=== PATIENT | male | born 1935 | race Caucasian/White ===

== ENCOUNTER 2016-03-22 08:16 | Emergency (ER) | payer OTHER, BC ==
[2016-03-22 08:39] VITALS: BP 160/94; PULSE 77; RESP 18; TEMP 99.1; O2SAT 89
[2016-03-22] MEDS ORDERED: IPRATROPIUM/ALBUTEROL 3 ML DEYVIAL IH ONE (08:47)
--- NOTE | 2016-03-22 09:10 | DX ---
PA and Lateral Chest March 22, 2016 0847 hours Clinical Indications: Cough with hypoxia and rhonchi. Comparison: March 17, 2010. Findings: The lungs are clear, and no masses are found. The heart and pulmonary vessels are normal. There are no pleural effusions and no pneumothorax. The bones are unremarkable for this age. Impression: No acute cardiopulmonary process.
--- NOTE | 2016-03-22 09:18 | UCPHY ---
H & P Patient Type: New Chief Complaint Nursing Narrative: 3 days of cough, congestion Time Seen by Provider: 03/22/16 08:40 HPI/ROS: This patient complains of cough over the past 5 days. The intensity from the see the cough is worsened for the past 3 days. He has been unable to use his BiPAP machine at night over the past 2 nights because of associated nasal congestion. Finally, his reports hearing rattles in his chest. She is concerned about potential pneumonia. This patient reports that he is susceptible pneumonia, citing previous pneumonias in his life.. ROS: No high fevers or chills. He reports no HEENT complaints other than coryza. He has no pleuritic pain. He has mild dyspnea. No chest pain. No lightheadedness or other cardio vascular symptoms. He reports no GI symptoms. Integumentary: No rash 10 point ROS is otherwise negative Source: Patient, Family (His also provides history) Exam Limitations: No limitations - Personal History Current Tetanus/Diphtheria Vaccine: Yes - Medical/Surgical History PMH: History is notable for type 2 diabetes and previous pneumonia Hx Diabetes: Yes Hx Cardiac Disease: Yes Other PMH: Sleep Apnea-BiPap. Arthritis. Gallbladder. Prostate - Family History Significant Family History: No pertinent family hx - Social History Smoking Status: Never smoked Alcohol Use: Rarely Drug Use: None - Physical Exam Exam: General Appearance: Pleasant 80-year-old male appears younger than his stated age Alert, no distress. Eyes: Pupils equal and round no pallor or injection. ENT, Mouth: Mucous membranes moist. Respiratory: Mild rhonchi. No rales. No respiratory distress Cardiovascular: Regular rate and rhythm. No JVD or peripheral edema Neurological: Alert with no focal deficits Skin: Warm and dry, no rashes. Musculoskeletal: Neck is supple nontender. Extremities are symmetrical, full range of motion. Psychiatric: Mood and affect normal DIFFERENTIAL DIAGNOSIS: After history and physical exam differential diagnosis was considered for bronchitis, pneumonia, influenza Constitutional: Initial Vital Signs Temperature (C) 37.3 C 03/22/16 08:36 Heart Rate 77 03/22/16 08:36 Respiratory Rate 18 03/22/16 08:36 Blood Pressure 160/94 H 03/22/16 08:36 O2 Sat (%) 89 L 03/22/16 08:36 O2 Delivery Mode Room Air Allergies/Adverse Reactions: No Known Allergies Allergy (Verified 03/22/16 08:35) Home Medications: Medication Instructions Recorded Albuterol Hfa Anes Only [Proair 2 puffs IH Q4 PRN #1 mdi 03/22/16 Hfa Icu (*)] Aspirin 03/22/16 Lisinopril 03/22/16 Metformin HCl 03/22/16 Omeprazole 03/22/16 Simvastatin 03/22/16 Medical Decision Making ED Course/Re-evaluation: DuoNeb with increased aeration decreased rhonchi and improved O2 sat from 89% to 92%. I counseled the patient regarding influenza-influenza a was positive Discussion: Patient here with viral bronchitis chewable to influenza with no evidence of significant toxicity. His exam improved after DuoNeb. I think that he is safe for discharge home - Data Points Laboratory Results: 03/22/16 08:50 Influenza Typ A,B (DFA) POSITIVE FOR FLU A H (NEGATIVE) Departure - Departure Disposition: Home, Routine, Self-Care Clinical Impression: Viral bronchitis, Influenza A Condition: Good Instructions: Influenza (ED), Acute Bronchitis (ED) Additional Instructions: Diagnosis: 1. Viral bronchitis 2. Influenza A Plan: Drink plenty fluids Albuterol inhaler with spacer for cough, wheeze or shortness of breath Return for any significant worsening despite the treatment plan Referrals: Hugo Lynch MD [Primary Care Provider] - As per Instructions Prescriptions: Albuterol Hfa Anes Only [Proair Hfa Icu (*)] 2 puffs IH Q4 PRN #1 mdi PRN Reason: Wheezing - PQRS PQRS Measurement: 134: Depression screening and followup, PRIME MD-PHQ2 (12 years and older) Over the last 2 weeks, how often have you been bothered by any of the following problems? 1. Feeling down, depressed, or hopeless? 2. Little interest or pleasure in doing things? Patient answered no to both 1 and 2 130: Documentation of medications. Reviewed all patient medications, doses, route and frequency. 226: Do you smoke? [No.] 47: 65 and older: Advanced care planning. Patient designates surrogate decision maker as spouse 51: 18 years old and older with diagnosis of COPD, spirometry performance. NA 52: 18 years old and older with COPD and symptoms of COPD or FEV1<60% predicted prescribed a B Agonist. NA
== END 2016-03-22 09:44 | disposition home or self-care (01) ==
LOC: CED 08:16
DX: J20.8 Acute bronchitis due to other specified organisms (principal); J09.X2 Influenza due to identified novel influenza A virus with other respiratory manifestations; E11.9 Type 2 diabetes mellitus without complications
CPT/HCPCS: 71020; G0463; 87400-PO; 99204-PO

== ENCOUNTER 2016-08-01 09:21 | Emergency (ER) | payer OTHER, BC ==
[2016-08-01] MEDS ORDERED: OXYMETAZOLINE 30 ML NASAL SPRAY EACHNARE ONE (09:38)
[2016-08-01 09:39] VITALS: TEMP 97.9; O2SAT 90
--- NOTE | 2016-08-01 09:40 | EDPHY ---
H & P Time Seen by Provider: 08/01/16 09:31 HPI/ROS: CHIEF COMPLAINT: Sinus congestion cough HISTORY OF PRESENT ILLNESS: The patient is an 80-year-old man who comes to the emergency department with his complaining of a cough for the last 3 weeks as well as sinus congestion and trouble sleeping. He states that he cannot sleep because he wears BiPAP and his sinuses are so congested that it is very anxiety provoking. His cough has been productive of yellow sputum over the last 2 days. He has not had a fever. He does not feel short of breath. He denies chest pain. His states that something similar happened about 6 years ago and they had 4 ER visits and eventually stayed in the hospital. They followed up with infectious disease. No known was ever able to tell them what caused his infection and antibiotics did not seem to work but he eventually improved after going to a warmer climate in [place]. REVIEW OF SYSTEMS: Constitutional: denies: chills, fever, recent illness, recent injury EENTM: See HPI Respiratory: See HPI Cardiac: denies: chest pain, irregular heart rate, lightheadedness, palpitations Gastrointestinal/Abdominal: denies: abdominal pain, diarrhea, nausea, vomiting, blood streaked stools Genitourinary: denies: dysuria, frequency, hematuria, pain Musculoskeletal: denies: joint pain, muscle pain Skin: denies: lesions, rash, jaundice, bruising Neurological: denies: headache, numbness, paresthesia, tingling, dizziness, weakness Hematologic/Lymphatic: denies: blood clots, easy bleeding, easy bruising Immunologic/allergic: denies: HIV/AIDS, transplant EXAM: GENERAL: Well-appearing, well-nourished and in no acute distress. HEAD: Atraumatic, normocephalic. EYES: Pupils equal round and reactive to light, extraocular movements intact, sclera anicteric, conjunctiva are normal. ENT: TMs normal, sinus congestion, oropharynx clear without exudates. Moist mucous membranes. NECK: Normal range of motion, supple without lymphadenopathy or JVD. LUNGS: Breath sounds clear to auscultation bilaterally and equal. No wheezes rales or rhonchi. HEART: Regular rate and rhythm without murmurs, rubs or gallops. ABDOMEN: Soft, nontender, normoactive bowel sounds. No guarding, no rebound. No masses appreciated. BACK: No CVA tenderness, no spinal tenderness, step-offs or deformities EXTREMITIES: Normal range of motion, no pitting or edema. No clubbing or cyanosis. NEUROLOGICAL: Cranial nerves II through XII grossly intact. Normal speech, normal gait. 5/5 strength, normal movement in all extremities, normal sensation PSYCH: Normal mood, normal affect. SKIN: Warm, dry, normal turgor, no visible rashes or lesions. Source: Patient, Family Exam Limitations: No limitations - Medical/Surgical History Hx Asthma: No Hx Chronic Respiratory Disease: No Hx Diabetes: Yes Hx Cardiac Disease: Yes Hx Renal Disease: No Hx Cirrhosis: No Other PMH: Sleep Apnea-BiPap. Arthritis. Gallbladder. Prostate - Family History Significant Family History: No pertinent family hx - Social History Smoking Status: Never smoked Alcohol Use: Sober Drug Use: None Constitutional: Initial Vital Signs Temperature (C) 36.6 C 08/01/16 09:25 Heart Rate 67 08/01/16 09:25 Respiratory Rate 18 08/01/16 09:25 Blood Pressure 173/91 H 08/01/16 09:25 O2 Sat (%) 90 L 08/01/16 09:25 O2 Delivery Mode Room Air Allergies/Adverse Reactions: No Known Allergies Allergy (Verified 08/01/16 09:35) Home Medications: Medication Instructions Recorded Albuterol Hfa Anes Only [Proair 2 puffs IH Q4 PRN #1 mdi 03/22/16 Hfa Icu (*)] Aspirin 03/22/16 Lisinopril 03/22/16 Metformin HCl 03/22/16 Omeprazole 03/22/16 Simvastatin 03/22/16 AZITHROMYCIN [Z-PACK] 250 mg PO DAILY #6 tab 08/01/16 Medical Decision Making - Diagnostics Imaging Results: Imaging Impressions Chest X-Ray 08/01/16 09:38 Impression: 1. Borderline-cardiomegaly. 2. Mild perihilar bronchitis, without a focal infiltrate. Imaging: Discussed imaging studies w/ call out operator Radiologist, I viewed and interpreted images myself ED Course/Re-evaluation: We discussed the x-ray results. The patient is feeling much better after Afrin. I encouraged him to use this at night before placing his BiPAP. He understands and agrees with this. He also states that he did not know years post to inhale 1 using nasal sprays. Encouraged him to continue using his Nasacort as well. I will start him on azithromycin for mild bronchitis. He and his are in agreement with this plan. I told them I will not prescribe him a sedative for sleep because he is probably waking up mild hypoxic. Differential Diagnosis: Partial list of the Differential diagnosis considered include but were not limited to; allergies, sinusitis, bronchitis, pneumonia and although unlikely based on the history and physical exam, I also considered sepsis, abscess, acute coronary disease, COPD. I discussed these differential diagnoses and the plan with the patient as well as the usual and expected course. The patient understands that the diagnosis is provisional and that in medicine we are not always correct and that further workup is often warranted. Usual and customary warnings were given. All of the patient's questions were answered. The patient was instructed to return to the emergency department should the symptoms at all worsen or return, otherwise to followup with the physician as we discussed. - Data Points Medications Given: Discontinued Medications Oxymetazoline HCl (Afrin Nasal [place]) 2 sprays EACHNARE EDNOW ONE Stop: 08/01/16 09:39 Last Admin: 08/01/16 10:10 Dose: 2 spr Departure - Departure Disposition: Home, Routine, Self-Care Clinical Impression: Sinus congestion Acute bronchitis Qualifiers: Bronchitis organism: unspecified organism Qualified Code(s): J20.9 - Acute bronchitis, unspecified Condition: Fair Instructions: Oxymetazoline (Into the nose), Acute Bronchitis (ED) Referrals: Hugo Lynch MD [Primary Care Provider] - As per Instructions Prescriptions: AZITHROMYCIN [Z-PACK] 250 mg PO DAILY #6 tab
[2016-08-01 10:46] VITALS: BP 161/84; PULSE 65; RESP 18
== END 2016-08-01 10:46 | disposition home or self-care (01) ==
LOC: CED 09:21
DX: R09.81 Nasal congestion (principal); E11.9 Type 2 diabetes mellitus without complications; J20.9 Acute bronchitis, unspecified; Z79.82 Long term (current) use of aspirin; Z79.84 Long term (current) use of oral hypoglycemic drugs; Z85.46 Personal history of malignant neoplasm of prostate
CPT/HCPCS: 71020-PO

== ENCOUNTER 2016-08-07 09:52 | Emergency (ER) | payer OTHER, BC ==
[2016-08-07 10:31] VITALS: O2SAT 93
--- NOTE | 2016-08-07 10:37 | EDPHY ---
H & P Time Seen by Provider: 08/07/16 10:25 HPI/ROS: CHIEF COMPLAINT: Difficulty sleeping HISTORY OF PRESENT ILLNESS: The patient is an 80-year-old male with history of hypertension and sleep apnea, who presents continued difficulty sleeping. The patient was seen here 08/01 with URI symptoms and difficulty sleeping. He was started on Azithromycin and Afrin nasal spray for congestion. The cough and congestion have improved, but he continues to have insomnia. He has had trouble sleeping for the past month. 3 weeks ago, he went on a cruise and returned with URI sx, including cough. He was seen at the ED in [place] and diagnosed with acute bronchitis. He then followed up with Dr. Tavera and was given an inhaler and 5 tablets of Ambien. The Ambien helped him sleep, though he has run out of Ambien. He gets very anxious at night before bed, thinking that he won't be able to sleep. He wakes up feeling anxious and then can not get back to sleep. The patient continues to have high blood pressure. He uses his CPAP at night, but has not used it for the past 2 weeks. Patient reports he subsequently develops intermittent headaches from lack of sleep. No EATON now. He denies chest pain, shortness of breath, or changes in vision. REVIEW OF SYSTEMS: A comprehensive 10 point review of systems is otherwise negative aside from elements mentioned in the history of present illness. Past Medical/Surgical History: Sleep apnea, Hypertension Social History: . Lives at home with . Smoking Status: Never smoked Physical Exam: General Appearance: Alert, pleasant, well-appearing Eyes: Pupils equal and round, no conjunctival pallor or injection ENT, Mouth: Mucous membranes moist Neck: Normal inspection Respiratory: Lungs are clear to auscultation Cardiovascular: Regular rate and rhythm Gastrointestinal: Abdomen is soft and non-tender Neurological: A&O, nonfocal, normal gait Skin: Warm and dry, no rash Extremities: Nontender, no pedal edema Psychiatric: anxious Constitutional: Initial Vital Signs Temperature (C) 36.7 C 08/07/16 09:56 Heart Rate 69 08/07/16 09:56 Respiratory Rate 20 08/07/16 09:56 Blood Pressure 185/84 H 08/07/16 09:56 O2 Sat (%) 92 08/07/16 09:56 O2 Delivery Mode Nasal Cannula O2 (L/minute) 2 Allergies/Adverse Reactions: No Known Allergies Allergy (Verified 08/07/16 09:53) Home Medications: Medication Instructions Recorded Aspirin 03/22/16 Lisinopril 03/22/16 Metformin HCl 03/22/16 Omeprazole 03/22/16 Simvastatin 03/22/16 Zolpidem Tartrate [Ambien 10 mg] 10 mg PO HS PRN #15 tablet 08/07/16 Medical Decision Making ED Course/Re-evaluation: The patient has a history of hypertension and sleep apnea. He presents today with difficulty sleeping. The patient states this has been an ongoing problem for the past month. He gets very anxious at night which prevents him from sleeping. Plan to discharge patient home with Ambien. I will have him followup with his primary care physician for insomnia. Repeat BP is 165/95. Will have him take and record his BP twice daily. No evidence of HTN-related emergency/ urgency. Differential Diagnosis: includes though not limited to pneumonia, hypoxia, ICH, uncontrolled HTN Departure - Departure Disposition: Home, Routine, Self-Care Clinical Impression: Nasal congestion Insomnia Qualifiers: Insomnia type: primary Qualified Code(s): F51.01 - Primary insomnia Condition: Good Additional Instructions: Use Flonase inhaler in the morning. Take Ambien as directed. Please followup with your primary care physician for further evaluation. Referrals: Hugo Lynch MD [Primary Care Provider] - As per Instructions Prescriptions: Zolpidem Tartrate [Ambien 10 mg] 10 mg PO HS PRN #15 tablet PRN Reason: insomnia Report Scribed for: Annabella Morris Report Scribed by: Sofie Christianson Date of Report: 08/07/16 Time of Report: 10:37 Physician Review and Approval Statement: 08/07/16 10:37 Portions of this note were transcribed by a medical office representative. I personally performed the history, physical exam, and medical decision-making; and confirmed the accuracy of the information in the transcribed note.
[2016-08-07 11:08] VITALS: BP 155/89; PULSE 60; RESP 16; TEMP 98.2
== END 2016-08-07 11:08 | disposition home or self-care (01) ==
DX: F51.01 Primary insomnia (principal); R09.81 Nasal congestion; I10 Essential (primary) hypertension; Z79.82 Long term (current) use of aspirin; Z79.84 Long term (current) use of oral hypoglycemic drugs

== ENCOUNTER → 2017-09-30 | Outpatient (CLI) | payer OTHER, BC | LOC: BHFA 11:00 | PROVIDERS: ATTEND Internal Medicine Cardiovascular Disease | DX: I10 Essential (primary) hypertension (principal); R60.9 Edema, unspecified ==